=== PATIENT | female | born 1995 | race African-American/Black ===

== ENCOUNTER 2022-01-28 07:20 | Observation (INO) | payer OTHER ==
[~2022-01-28] VITALS: Ht 160 cm; Wt 77.1 kg
[2022-01-28] MEDS ORDERED: ONDANSETRON 4 MG/2 ML VIAL IVP PRN (08:05)
[2022-01-28] MEDS ORDERED: CARBOPROST 250 MCG/ML AMP IM PRN (08:05)
[2022-01-28] MEDS ORDERED: LACTATED RINGERS 1,000 ML IV SCH (08:05)
[2022-01-28] MEDS ORDERED: MORPHINE SULFATE 5 MG/ML VIAL IVP PRN (08:05)
[2022-01-28] MEDS ORDERED: METHYLERGONOVINE 0.2 MG/ML AMP IM PRN (08:05)
[2022-01-28] MEDS ORDERED: FERR-252 PO (08:12)
[2022-01-28] MEDS ORDERED: PREN-13 PO (08:12)
--- NOTE | 2022-01-28 10:29 | NUR ---
PATIENT HAS BEEN SCREENED AND CATEGORIZED LOW NUTRITION RISK. PATIENT WILL BE SEEN WITHIN 7 DAYS OF ADMISSION. 01/28/22-02/04/[address]
== END 2022-01-28 08:35 | disposition home or self-care (01) ==
LOC: INTOOBSV 07:20 → MLD 07:20
PROVIDERS: ADMIT Obstetrics & Gynecology; ATTEND Obstetrics & Gynecology
DX: O26.893 Other specified pregnancy related conditions, third trimester (principal); L29.9 Pruritus, unspecified; R21 Rash and other nonspecific skin eruption; R56.9 Unspecified convulsions; Z3A.42 42 weeks gestation of pregnancy
CPT/HCPCS: 59025; 81000; G0378; G0379